=== PATIENT | female | born 1960 | race Caucasian/White ===

== ENCOUNTER 2021-02-22 10:10 | Outpatient (CLI) | payer BC | END 2021-02-22 23:59 | disposition home or self-care (01) | LOC: WOU 10:10 | PROVIDERS: ATTEND Podiatrist Foot & Ankle Surgery | DX: S92.911D Unspecified fracture of right toe(s), subsequent encounter for fracture with routine healing (principal); X58.XXXD Exposure to other specified factors, subsequent encounter; R26.2 Difficulty in walking, not elsewhere classified; M79.671 Pain in right foot | CPT/HCPCS: G0463 ==

== ENCOUNTER 2021-03-08 10:20 | Outpatient (CLI) | payer BC | END 2021-03-08 23:59 | disposition home or self-care (01) | LOC: WOU 10:20 | PROVIDERS: ATTEND Podiatrist Foot & Ankle Surgery | DX: S92.911D Unspecified fracture of right toe(s), subsequent encounter for fracture with routine healing (principal); X58.XXXD Exposure to other specified factors, subsequent encounter; M79.671 Pain in right foot; R26.2 Difficulty in walking, not elsewhere classified | CPT/HCPCS: G0463 ==

== ENCOUNTER → 2021-08-19 | Outpatient (CLI) | payer BC | END | disposition home or self-care (01) | LOC: MRI 12:46 | PROVIDERS: ATTEND Legal Medicine | DX: S76.312A Strain of muscle, fascia and tendon of the posterior muscle group at thigh level, left thigh, initial encounter (principal); R58 Hemorrhage, not elsewhere classified; R60.9 Edema, unspecified; X58.XXXA Exposure to other specified factors, initial encounter; Y93.89 Activity, other specified; Y92.89 Other specified places as the place of occurrence of the external cause; Y99.8 Other external cause status | CPT/HCPCS: 73718-TC; 73721-TC ==